=== PATIENT | female | born 1980 | race Caucasian/White ===

== ENCOUNTER 2023-08-28 00:14 | Emergency (ER) | payer MEDICAID ==
[~2023-08-28] VITALS: Ht 162.6 cm; Wt 63.0 kg
[2023-08-28 00:22] VITALS: BP 148/93; RESP 16; O2SAT 98
[2023-08-28 00:23] VITALS: PULSE 101
[2023-08-28 01:15] VITALS: TEMP 98.5
[2023-08-28] MEDS: ACETAMINOPHEN 325MG TABLET PO ONE (01:15)
[2023-08-28] MEDS ORDERED: PRED10TA MT (04:29)
[2023-08-28] MEDS ORDERED: BENZ200C52 MT (04:29)
== END 2023-08-28 05:09 | disposition home or self-care (01) ==
LOC: ER 00:14
DX: J45.909 Unspecified asthma, uncomplicated (principal); Z90.49 Acquired absence of other specified parts of digestive tract; Z98.890 Other specified postprocedural states
CPT/HCPCS: 71045; 81025; 99283